=== PATIENT | female | born 1985 | race Caucasian/White ===

== ENCOUNTER 2016-07-25 19:16 | Emergency (ER) | payer MEDICARE, MEDICAID ==
[~2016-07-25] VITALS: Ht 157.5 cm; Wt 56.0 kg
[~2016-07-25 19:16] MED LIST: AMLO5TAB2 PO; CALC0.25 PO; CALC200T3 PO; CALC667C PO; CEPH-367 PO; CINA60TA PO; EPOE10002 SQ; FERR325T20 PO; FURO20TA3 PO; HYDR-3240 PO; HYDR1TAB12 PO; LISI-167 PO; LISI40TA PO; METO200T3 PO; MYCO250C4 PO; PRED5TAB PO; SEVE800T8 PO; SODI650T PO; TACR1CAP PO; [UNRECOGNIZED DRUG - CODE] PO; [UNRECOGNIZED DRUG - OTHER] PO
[2016-07-25 20:10] LABS: BLOOD UREA NITROGEN 21 mg/dL (7-18)
[2016-07-25 20:16] LABS: ASPARTATE AMINO TRANSFERASE 10 U/L (15-37)
[2016-07-25] MEDS ORDERED: TACR1CAP4 PO (20:30)
[2016-07-25] MEDS ORDERED: PRED10TA PO (20:30)
[2016-07-25] MEDS ORDERED: MYCO500T3 PO (20:30)
[2016-07-25] MEDS ORDERED: VALG450T PO (20:33)
[2016-07-25] MEDS ORDERED: SULF1TAB24 PO (20:33)
[2016-07-25] MEDS ORDERED: FLUC100T4 PO (20:33)
[2016-07-25] MEDS ORDERED: OMEP-110 PO (20:33)
[2016-07-25] MEDS ORDERED: TACR5CAP4 PO (20:33)
[2016-07-25] MEDS ORDERED: ASPI-621 PO (20:33)
[2016-07-25 21:56] VITALS: BP 106/60
== END 2016-07-25 22:32 | disposition home or self-care (01) ==
LOC: ED 22:15
DX: R10.32 Left lower quadrant pain (principal); Z94.0 Kidney transplant status
CPT/HCPCS: 36415; 76700; 80053; 81003; 83690; 84132; 84703; 85025; 99285

== ENCOUNTER 2017-09-17 07:16 | Day surgery (SDC) | payer MEDICARE, MEDICAID ==
[~2017-09-17] VITALS: Ht 158.8 cm; Wt 58.3 kg
[~2017-09-17 07:16] MED LIST changes: +ASPI-621 PO; +BUPIVACAINE/PF 0.5% ONE; +CALC1AMP PO; -EPOE10002 SQ; +EPOE10005 SQ; +FERR325T18 PO; -FERR325T20 PO; +FLUC100T4 PO; +HEPARIN 1,000 UNITS/ML, 10ML ONE; -METO200T3 PO; +METO200T47 PO; +MYCO500T PO; +MYCO500T3 PO; +OMEP-110 PO; +PRED10TA PO; +PROTAMINE SULFATE 10 MG/ML, 5ML ONE; +SULF1TAB24 PO; +TACR1CAP4 PO; +TACR5CAP4 PO; +THROMBIN 5,000 UNIT VIAL TP ONE; +VALG450T PO; -[UNRECOGNIZED DRUG - CODE] PO
[2017-09-17] MEDS ORDERED: SODIUM CHLORIDE 0.9% 1,000 ML IV SCH (07:34)
[2017-09-17 07:50] VITALS: BP 131/90
[2017-09-17] MEDS ORDERED: LIDOCAINE-MPF 1%, 2ML ONE (07:53)
[2017-09-17] MEDS ORDERED: FENTANYL PF 100 MCG/2ML ONE (08:31)
[2017-09-17] MEDS ORDERED: MIDAZOLAM 1 MG/ML, 2ML ONE (08:31)
[2017-09-17] MEDS ORDERED: LIDOCAINE-MPF 1%, 2ML INFIL ONE (09:00)
[2017-09-17] MEDS ORDERED: PROPOFOL 10 MG/ML, 20ML ONE (09:26)
[2017-09-17] MEDS ORDERED: ACETAMINOPHEN 325 MG TABLET PO PRN (10:00)
[2017-09-17] MEDS ORDERED: ONDANSETRON 2MG/ML, 2ML IV PRN (10:00)
[2017-09-17] MEDS ORDERED: EPHEDRINE 50 MG/ML, 1ML IVPush PRN (10:00)
[2017-09-17] MEDS ORDERED: MEPERIDINE/PF 25MG/0.5ML IVPush PRN (10:00)
[2017-09-17] MEDS ORDERED: PROMETHAZINE 25 MG/ML, 1ML IV PRN (10:00)
[2017-09-17] MEDS ORDERED: FENTANYL PF 100 MCG/2ML IV PRN (10:00)
[2017-09-17] MEDS ORDERED: LABETALOL 5MG/ML, 20ML IV PRN (10:00)
[2017-09-17] MEDS ORDERED: OXYcodone 5 MG/5 ML ORAL.SOL UDC PO PRN (10:00)
[2017-09-17] MEDS ORDERED: MIDAZOLAM 1 MG/ML, 2ML IV PRN (10:00)
[2017-09-17] MEDS ORDERED: hydrALAzine 20 MG/ML, 1ML IV PRN (10:00)
[2017-09-17] MEDS ORDERED: HYDROcodone/APAP 7.5-325MG/15ML UDC PO PRN (10:00)
[2017-09-17] MEDS ORDERED: ALBUTEROL SULFATE 2.5 MG/3 ML NPPB PRN (10:00)
[2017-09-17] MEDS ORDERED: ACETAMINOPHEN 650 MG/20.3 ML UDC ONE (10:09)
[2017-09-17] MEDS ORDERED: OXYcodone 5 MG/5 ML ORAL.SOL UDC ONE (10:09)
[2017-09-17] MEDS ORDERED: LIDOCAINE/PF 1%, 30ML ONE (13:35)
== END 2017-09-17 11:45 ==
LOC: OUT 07:16
PROVIDERS: ATTEND Surgery Vascular Surgery
DX: I77.0 Arteriovenous fistula, acquired (principal); I12.9 Hypertensive chronic kidney disease with stage 1 through stage 4 chronic kidney disease, or unspecified chronic kidney disease; N18.9 Chronic kidney disease, unspecified; Z94.0 Kidney transplant status; E21.3 Hyperparathyroidism, unspecified; Z98.890 Other specified postprocedural states; Z88.8 Allergy status to other drugs, medicaments and biological substances; Z91.040 Latex allergy status; Z72.89 Other problems related to lifestyle
CPT/HCPCS: 36415; 37607; 81025; J2250; J2704; J3010; J3490; J7030; J1644; J2720